=== PATIENT | female | born 1965 | race Caucasian/White ===

== ENCOUNTER 2018-01-23 12:05 | Day surgery (SDC) | payer OTHER ==
[2018-01-23] MEDS ORDERED: CEFAZOLIN 1 GM INJ (14:28)
[2018-01-23] MEDS ORDERED: MIDAZOLAM 1 MG/ML 2 ML INJ (14:28)
[2018-01-23] MEDS ORDERED: FENTAnyl 50 MCG/ML VIAL (14:28)
[2018-01-23] MEDS ORDERED: ONDANSETRON 4 MG INJ (14:34)
[2018-01-23] MEDS ORDERED: DEXAMETHASONE 4 MG/ML 1 ML INJ (14:35)
[2018-01-23] MEDS ORDERED: KETOROLAC 30 MG INJ (14:35)
[2018-01-23] MEDS ORDERED: METOCLOPRAMIDE 10 MG INJ (14:35)
[2018-01-23] MEDS: BUPIVACAINE 0.5% (SDV) 30 ML INJ (14:45)
[2018-01-23] MEDS: LIDOCAINE 1% (MPF) 30 ML INJ (14:46)
[2018-01-23] MEDS ORDERED: POLYMYXIN/BACITRACIN 1L IRRIG (14:55)
[2018-01-23] MEDS ORDERED: PROPOFOL 20 ML (15:04)
[2018-01-23] MEDS ORDERED: FENTAnyl 50 MCG/ML VIAL IV ×3 (15:30)
[2018-01-23] MEDS ORDERED: OXYCODONE/ACETAMINOPHEN (5/325) TAB PO ×2 (15:30)
[2018-01-23] MEDS ORDERED: hydrALAzine 20 MG INJ IV (15:30)
[2018-01-23] MEDS ORDERED: DIPHENHYDRAMINE 50 MG INJ IV (15:30)
[2018-01-23] MEDS ORDERED: MEPERIDINE 25 MG INJ IV (15:30)
[2018-01-23] MEDS ORDERED: LABETALOL HCL 20MG INJ IV (15:30)
[2018-01-23] MEDS ORDERED: EPHEDrine SULFATE 50 MG/5 ML SYG IV (15:30)
[2018-01-23] MEDS ORDERED: METOCLOPRAMIDE 10 MG INJ IV (15:30)
[2018-01-23] MEDS ORDERED: ONDANSETRON 4 MG INJ IV (15:30)
[2018-01-23] MEDS ORDERED: HYDROmorphONE (0.2 MG/ML) 10ML SYG IV ×2 (15:30)
[2018-01-23] MEDS ORDERED: HYDROCODONE/APAP (5/325) TAB PO (15:30)
== END 2018-01-23 16:57 | disposition home or self-care (01) ==
LOC: SDS 12:05
DX: G56.01 Carpal tunnel syndrome, right upper limb (principal); M65.331 Trigger finger, right middle finger; I10 Essential (primary) hypertension; E11.9 Type 2 diabetes mellitus without complications; E78.5 Hyperlipidemia, unspecified
CPT/HCPCS: 26055; 82962; 84703

== ENCOUNTER 2018-02-06 12:25 | Day surgery (SDC) | payer OTHER ==
[~2018-02-06 12:25] MED LIST: LACTATED RINGER'S 1,000 ML IV*
[2018-02-06] MEDS ORDERED: DEXTROSE 50% 50 ML SYRINGE (14:07)
[2018-02-06] MEDS: DEXTROSE 50% 50 ML SYRINGE IV (14:12)
[2018-02-06 14:26] LABS: ADD MAN DIFF? NO
[2018-02-06 14:30] LABS: ADD UMIC NO; BASOPHILS % 0.4 % (0.0-2.0); EOSINOPHILS % 0.4 % (0.0-7.0); HEMATOCRIT 36.1 % (37.0-47.0); HEMOGLOBIN 12.2 g/dl (12.0-16.0); LYMPHOCYTES # 2.8 10^3/ul (0.8-2.9); LYMPHOCYTES % 27.2 % (15.0-51.0); MEAN CORPUSCULAR HEMOGLOBIN 28.6 pg (29.0-33.0); MEAN CORPUSCULAR HGB CONC 33.8 g/dl (32.0-37.0); MEAN CORPUSCULAR VOLUME 84.5 fl (82.0-101.0); MONOCYTE # 0.6 10^3/ul (0.3-0.9); NEUTROPHIL # 6.7 10^3/ul (1.6-7.5); NEUTROPHILS % 65.8 % (39.0-77.0); PLATELET COUNT 463 10^3/UL (140-415); RED BLOOD COUNT 4.27 10^6/ul (4.20-5.40); RED CELL DISTRIBUTION WIDTH 13.2 % (11.5-14.5); UR ASCORBIC ACID 20 mg/dL (NEGATIVE); UR BILIRUBIN (Dip) NEGATIVE (NEGATIVE); UR BLOOD (Dip) NEGATIVE (NEGATIVE); UR CLARITY CLEAR (CLEAR); UR COLOR STRAW (YELLOW); UR GLUCOSE (Dip) NEGATIVE (NEGATIVE); UR KETONES (Dip) NEGATIVE (NEGATIVE); UR LEUKOCYTE ESTERASE (Dip) NEGATIVE Leu/ul (NEGATIVE); UR NITRITE (Dip) NEGATIVE (NEGATIVE); UR SPECIFIC GRAVITY (Dip) 1.008 (1.003-1.030); UR TOTAL PROTEIN (Dip) NEGATIVE (NEGATIVE); UR UROBILINOGEN (Dip) NEGATIVE (NEGATIVE)
[2018-02-06 14:30] LABS: WHITE BLOOD COUNT 10.2 10^3/ul (4.8-10.8)
[2018-02-06 14:34] LABS: INR 0.92; PROTIME 12.4 Sec (11.9-14.9)
[2018-02-06 14:37] LABS: ALANINE AMINOTRANSFERASE 31 IU/L (13-69); ALBUMIN 4.3 g/dl (3.3-4.9); ALBUMIN/GLOBULIN RATIO 1.34; ALKALINE PHOSPHATASE 91 IU/L (42-121); ANION GAP 18 (8-16); ASPARTATE AMINO TRANSFERASE 26 IU/L (15-46); BILIRUBIN,INDIRECT 0.1 mg/dl (0-1.1); BILIRUBIN,TOTAL 0.1 mg/dl (0.2-1.3); CARBON DIOXIDE 28 mmol/L (21-31); CHLORIDE 102 mmol/L (97-110); GLUCOSE 57 mg/dl (70-220); TOTAL PROTEIN 7.5 g/dl (6.1-8.1)
[2018-02-06 14:40] LABS: BLOOD UREA NITROGEN 9 mg/dl (7-20); CALCIUM 9.4 mg/dl (8.4-10.2); CREATININE 0.49 mg/dl (0.44-1.00); POTASSIUM 3.7 mmol/L (3.5-5.1); SODIUM 144 mmol/L (135-144)
[2018-02-06 14:43] LABS: PARTIAL THROMBOPLASTIN TIME 36.4 Sec (25.0-35.0)
[2018-02-06] MEDS ORDERED: PROPOFOL 20 ML (16:00)
[2018-02-06] MEDS ORDERED: MIDAZOLAM 1 MG/ML 2 ML INJ (16:01)
[2018-02-06] MEDS ORDERED: FENTAnyl 50 MCG/ML VIAL (16:01)
[2018-02-06] MEDS ORDERED: LIDOCAINE 1% (MPF) 30 ML INJ (16:16)
[2018-02-06] MEDS ORDERED: BUPIVACAINE 0.25% (MPF) 30 ML INJ (16:16)
[2018-02-06] MEDS ORDERED: BUPIVACAINE 0.5% (SDV) 30 ML INJ (16:19)
[2018-02-06] MEDS ORDERED: DEXAMETHASONE 4 MG/ML 1 ML INJ (16:21)
[2018-02-06] MEDS ORDERED: METOCLOPRAMIDE 10 MG INJ (16:21)
[2018-02-06] MEDS ORDERED: ONDANSETRON 4 MG INJ (16:21)
[2018-02-06] MEDS ORDERED: CEFAZOLIN 1 GM INJ (16:21)
[2018-02-06] MEDS ORDERED: KETOROLAC 30 MG INJ (16:21)
[2018-02-06] MEDS: BUPIVACAINE 0.5% (MPF) 30 ML INJ EPI (16:26)
[2018-02-06] MEDS ORDERED: OXYCODONE/ACETAMINOPHEN (5/325) TAB PO (17:30)
[2018-02-06] MEDS ORDERED: FENTAnyl 50 MCG/ML VIAL IV ×2 (17:30)
[2018-02-06] MEDS ORDERED: METOCLOPRAMIDE 10 MG INJ IV (17:30)
[2018-02-06] MEDS ORDERED: HYDROmorphONE (0.2 MG/ML) 10ML SYG IV ×2 (17:30)
[2018-02-06] MEDS ORDERED: ONDANSETRON 4 MG INJ IV (17:30)
== END 2018-02-06 18:51 | disposition home or self-care (01) ==
LOC: SDS 12:25
DX: G56.02 Carpal tunnel syndrome, left upper limb (principal); M65.332 Trigger finger, left middle finger; M65.9 Synovitis and tenosynovitis, unspecified; E78.5 Hyperlipidemia, unspecified; E11.9 Type 2 diabetes mellitus without complications; I10 Essential (primary) hypertension
CPT/HCPCS: 26055; 80053; 81003; 82962; 84703; 85025; 85610; 85730; 93005